=== PATIENT | female | born 1985 | race Hispanic/Latino ===

== ENCOUNTER 2023-08-25 01:26 | Emergency (ER) | payer OTHER, MEDICARE ==
[~2023-08-25] VITALS: Ht 149.9 cm; Wt 65.3 kg
[2023-08-25] MEDS: IBUPROFEN 600 MG TABLET PO ONE (02:45)
[2023-08-25] MEDS: HYDROXYZINE 25 MG TABLET PO ONE (03:12)
[2023-08-25] MEDS: HYDROXYZINE 25 MG TABLET ONE (03:13)
[2023-08-25] MEDS ORDERED: IBUP-2070 PO (03:51)
[2023-08-25 04:05] VITALS: BP 116/62; PULSE 88; RESP 16; O2SAT 96
== END 2023-08-25 04:16 | disposition home or self-care (01) ==
LOC: EDH 01:26
DX: S66.812A Strain of other specified muscles, fascia and tendons at wrist and hand level, left hand, initial encounter (principal); S16.1XXA Strain of muscle, fascia and tendon at neck level, initial encounter; S00.03XA Contusion of scalp, initial encounter; F41.9 Anxiety disorder, unspecified; F31.9 Bipolar disorder, unspecified; Z98.890 Other specified postprocedural states; Y08.89XA Assault by other specified means, initial encounter; Y93.89 Activity, other specified; Y92.89 Other specified places as the place of occurrence of the external cause; Y99.8 Other external cause status
CPT/HCPCS: 29125; 73090